=== PATIENT | female | born 1995 | race African-American/Black ===

== ENCOUNTER 2017-11-02 11:12 | Emergency (ER) | payer MEDICAID ==
[~2017-11-02] VITALS: Ht 167.6 cm; Wt 68.0 kg
[2017-11-02 14:11] LABS: BASOPHILS % 0.5 % (0.0-2.0); EOSINOPHILS % 3.3 % (0.0-5.0); HEMATOCRIT. 34.8 % (36.0-48.0); HEMOGLOBIN. 11.7 g/dL (12.0-16.0); LYMPHOCYTES % 18.5 % (20.0-50.0); MEAN CORPUSCULAR HEMOGLOBIN 31.4 pg (28.0-32.0); MEAN PLATELET VOLUME 7.1 fl (7.4-10.4); MONOCYTES % 10.2 % (2.0-8.0); NEUTROPHILS % 67.5 % (40.0-76.0); PLATELET 300 x1000/uL (130-400); RED BLOOD CELL COUNT 3.75 mill/uL (4.2-5.4); RED CELL DISTRIBUTION WIDTH 13.2 % (11.6-14.6)
[2017-11-02 14:16] LABS: INR 1.1; PROTHROMBIN TIME 11.6 sec (9.4-11.6)
[2017-11-02 14:22] LABS: CARBON DIOXIDE 28 mEq/L (21-32); CHLORIDE 104 mEq/L (98-107)
[2017-11-02 14:33] LABS: CLARITY URINE CLEAR (CLEAR); COLOR URINE YELLOW (YELLOW); KETONES URINE TRACE (NEGATIVE); LEUKOCYTE ESTERASE URINE TRACE (NEGATIVE); NITRITE URINE NEGATIVE (NEGATIVE); OCCULT BLOOD URINE NEGATIVE (NEGATIVE); PROTEIN URINE TRACE (NEGATIVE); SPECIFIC GRAVITY URINE 1.026 (1.005-1.030)
[2017-11-02] MEDS ORDERED: ACETAMINOPHEN 325MG TABLET PO ONE (16:00)
[2017-11-02] MEDS ORDERED: ONDANSETRON 4MG ODT PO ONE (16:00)
[2017-11-02 16:55] VITALS: BP 127/63
== END 2017-11-02 17:01 | disposition home or self-care (01) ==
LOC: ER 12:16
DX: J06.9 Acute upper respiratory infection, unspecified (principal); J45.909 Unspecified asthma, uncomplicated; R10.9 Unspecified abdominal pain; R11.2 Nausea with vomiting, unspecified
CPT/HCPCS: 36415; 80053; 81001; 81025; 83690; 85025; 85610; 87804; 99284; Q0162

== ENCOUNTER 2018-02-02 10:04 | Emergency (ER) | payer MEDICAID ==
[~2018-02-02] VITALS: Ht 167.6 cm; Wt 82.0 kg
[2018-02-02] MEDS ORDERED: ONDANSETRON HCL 4MG/2ML VIAL IV STA ×2 (11:02→13:49)
[2018-02-02] MEDS ORDERED: SODIUM CHLORIDE 0.9% 1000ML BAG (SEPSIS BOLUS) IV ONE (11:15)
[2018-02-02] MEDS ORDERED: ACETAMINOPHEN 500MG TABLET PO ONE (11:15)
[2018-02-02 11:49] LABS: HEMATOCRIT. 35.8 % (36.0-48.0); HEMOGLOBIN. 12.1 g/dL (12.0-16.0); MEAN CORPUSCULAR HEMOGLOBIN 31.3 pg (28.0-32.0); MEAN CORPUSCULAR VOLUME 92.4 fL (81.0-99.0); MEAN PLATELET VOLUME 6.7 fl (7.4-10.4); PLATELET 358 x1000/uL (130-400); RED BLOOD CELL COUNT 3.88 mill/uL (4.2-5.4); RED CELL DISTRIBUTION WIDTH 13.2 % (11.6-14.6)
[2018-02-02 11:56] LABS: CHLORIDE 106 mEq/L (98-107)
[2018-02-02 11:57] LABS: INR 1.2; PROTHROMBIN TIME 12.7 sec (9.4-11.6)
[2018-02-02 12:21] LABS: HCG SCREEN NEGATIVE
[2018-02-02 13:15] LABS: CLARITY URINE CLOUDY (CLEAR); COLOR URINE YELLOW (YELLOW); KETONES URINE NEGATIVE (NEGATIVE); LEUKOCYTE ESTERASE URINE NEGATIVE (NEGATIVE); NITRITE URINE NEGATIVE (NEGATIVE); OCCULT BLOOD URINE NEGATIVE (NEGATIVE); PROTEIN URINE NEGATIVE (NEGATIVE); SPECIFIC GRAVITY URINE 1.025 (1.005-1.030); UROBILINOGEN URINE 0.2 E.U./dL (0.2-1.0)
[2018-02-02 13:21] LABS: PLATELET ESTIMATE NORMAL
[2018-02-02 13:37] LABS: *COCAINE SCREEN URINE NEGATIVE (NEGATIVE); METHADONE URINE SCREEN NEGATIVE (NEGATIVE); OPIATES URINE SCREEN NEGATIVE (NEGATIVE); PHENCYCLIDINE URINE SCREEN NEGATIVE (NEGATIVE)
[2018-02-02 13:38] LABS: *AMPHETAMINES SCREEN URINE NEGATIVE (NEGATIVE); *BARBITURATES SCREEN URINE NEGATIVE (NEGATIVE); *BENZODIAZEPINES SCREEN URINE NEGATIVE (NEGATIVE); CANNABINOID URINE SCREEN NEGATIVE (NEGATIVE)
[2018-02-02] MEDS ORDERED: MORPHINE SULFATE 4 MG/ML CPJ (NOT FOR IM USE) IV STA (13:49)
[2018-02-02 18:25] VITALS: BP 121/70
== END 2018-02-02 19:14 | disposition home or self-care (01) ==
LOC: ER 10:04
DX: N83.202 Unspecified ovarian cyst, left side (principal); J45.909 Unspecified asthma, uncomplicated; J02.9 Acute pharyngitis, unspecified; Z88.0 Allergy status to penicillin; Z88.6 Allergy status to analgesic agent; Z88.8 Allergy status to other drugs, medicaments and biological substances; R00.0 Tachycardia, unspecified
CPT/HCPCS: 36415; 71045; 74176; 76830; 76856; 80053; 80305; 81003; 83605; 83690; 84703; 85025; 85610; 87040; 87070; 87086; 87430; 87804; 93005; 96361; 96374; 96375; 96376; 99285; J2270; J2405; J7030; Z7610

== ENCOUNTER 2018-10-11 16:59 | Emergency (ER) | payer MEDICAID ==
[~2018-10-11] VITALS: Ht 167.6 cm; Wt 79.0 kg
[2018-10-11 17:10] VITALS: BP 132/80
[2018-10-11] MEDS ORDERED: IBUPROFEN 800MG TABLET PO ONE (17:30)
[2018-10-11] MEDS ORDERED: BACITRACIN ZINC OINT UDPKT TOP ONE (17:30)
== END 2018-10-11 17:35 | disposition home or self-care (01) ==
LOC: ER 16:59
DX: S01.83XA Puncture wound without foreign body of other part of head, initial encounter (principal); S00.03XA Contusion of scalp, initial encounter; J45.909 Unspecified asthma, uncomplicated; Z88.8 Allergy status to other drugs, medicaments and biological substances; Z88.6 Allergy status to analgesic agent; Z91.010 Allergy to peanuts; Z98.890 Other specified postprocedural states; W22.8XXA Striking against or struck by other objects, initial encounter; Y93.89 Activity, other specified; Y92.89 Other specified places as the place of occurrence of the external cause; Y99.8 Other external cause status
CPT/HCPCS: 99283

== ENCOUNTER 2019-05-30 15:51 | Emergency (ER) | payer MEDICAID ==
[~2019-05-30] VITALS: Ht 167.6 cm; Wt 82.0 kg
[2019-05-30 17:55] LABS: BASOPHILS % 1.3 % (0.0-2.0); EOSINOPHILS % 3.1 % (0.0-5.0); HEMATOCRIT. 36.3 % (36.0-48.0); HEMOGLOBIN. 12.5 g/dL (12.0-16.0); LYMPHOCYTES % 39.3 % (20.0-50.0); MEAN CORPUSCULAR VOLUME 92.5 fL (81.0-99.0); MEAN PLATELET VOLUME 6.9 fl (7.4-10.4); MONOCYTES % 11.9 % (2.0-8.0); NEUTROPHILS % 44.4 % (40.0-76.0); PLATELET 340 x1000/uL (130-400); RED BLOOD CELL COUNT 3.92 mill/uL (4.2-5.4)
[2019-05-30 18:00] LABS: CHLORIDE 109 mEq/L (98-107)
[2019-05-30] MEDS ORDERED: SODIUM CHLORIDE 0.9% 1,000 ML IV ONE (18:16)
[2019-05-30] MEDS ORDERED: KETOROLAC 30MG/ML VIAL IV ONE (18:30)
[2019-05-30 20:17] LABS: CLARITY URINE CLEAR (CLEAR); COLOR URINE YELLOW (YELLOW); KETONES URINE TRACE (NEGATIVE); LEUKOCYTE ESTERASE URINE NEGATIVE (NEGATIVE); NITRITE URINE NEGATIVE (NEGATIVE); OCCULT BLOOD URINE 3+ (NEGATIVE); PROTEIN URINE TRACE (NEGATIVE); SPECIFIC GRAVITY URINE 1.032 (1.005-1.030)
[2019-05-30] MEDS ORDERED: ONDANSETRON 4MG ODT PO ONE (20:45)
[2019-05-30 22:30] VITALS: BP 140/89
== END 2019-05-30 23:40 | disposition home or self-care (01) ==
LOC: ER 15:51
DX: R10.30 Lower abdominal pain, unspecified (principal); N93.8 Other specified abnormal uterine and vaginal bleeding; Z90.89 Acquired absence of other organs; Z88.8 Allergy status to other drugs, medicaments and biological substances; Z88.6 Allergy status to analgesic agent; Z91.010 Allergy to peanuts; Z98.890 Other specified postprocedural states
CPT/HCPCS: 36415; 76830; 76856; 80053; 81003; 81025; 85025; 93005; 96374; 99284; J1885; J7030; Q0162

== ENCOUNTER 2022-11-10 17:32 | Emergency (ER) | payer MEDICAID, OTHER ==
[~2022-11-10] VITALS: Ht 167.6 cm; Wt 65.0 kg
[2022-11-10 17:47] VITALS: BP 125/90
[2022-11-10] MEDS ORDERED: ACETAMINOPHEN 325MG TABLET PO ONE (19:00)
[2022-11-10] MEDS ORDERED: TOPUD MT (20:47)
== END 2022-11-10 21:11 | disposition home or self-care (01) ==
LOC: ER 17:32
DX: J02.9 Acute pharyngitis, unspecified (principal); B34.9 Viral infection, unspecified; J45.909 Unspecified asthma, uncomplicated; Z88.8 Allergy status to other drugs, medicaments and biological substances; Z88.6 Allergy status to analgesic agent; Z91.010 Allergy to peanuts; Z98.890 Other specified postprocedural states
CPT/HCPCS: 87070; 87430; 99283

== ENCOUNTER 2023-08-13 08:59 | Emergency (ER) | payer BC, MEDICAID ==
[~2023-08-13] VITALS: Ht 172.7 cm; Wt 64.0 kg
[~2023-08-13 08:59] MED LIST: TOPUD MT
[2023-08-13 09:06] VITALS: TEMP 98.1; O2SAT 100
[2023-08-13 09:10] VITALS: BP 139/88; PULSE 92; RESP 18
[2023-08-13] MEDS ORDERED: IBUPROFEN 600MG TABLET PO STA (09:10)
[2023-08-13] MEDS ORDERED: IBUPROFEN 600MG TABLET PO SCH (11:15)
== END 2023-08-13 12:38 | disposition left against medical advice (07) ==
LOC: ER 08:59
DX: B34.9 Viral infection, unspecified (principal); J45.909 Unspecified asthma, uncomplicated; Z88.6 Allergy status to analgesic agent; Z88.8 Allergy status to other drugs, medicaments and biological substances; Z91.010 Allergy to peanuts
CPT/HCPCS: 71045; 99283